=== PATIENT | female | born 1945 | race Caucasian/White ===

== ENCOUNTER 2020-09-26 06:15 | Inpatient (IN) ==
[~2020-09-26 06:15] MED LIST: Bacitracin 50,000 UNIT, Polymyxin B Sulfate 500,000 UNIT, Sodium Chloride IRRigation 1,... IR ONE
[2020-09-26] MEDS ORDERED: Clindamycin 900 MG/50 ML 900 MG/50 ML IV.SOLN IVPB ONE (06:34)
[2020-09-26] MEDS ORDERED: *HR* Rocuronium Bromide 50 MG/5 ML VIAL ONE (06:41)
[2020-09-26] MEDS ORDERED: Dexamethasone 4 MG/ML VIAL ONE (06:41)
[2020-09-26] MEDS ORDERED: *HR* Succinylcholine 200 MG/10 ML VIAL IVP ONE (06:41)
[2020-09-26] MEDS ORDERED: Lidocaine -MPF 2% 2 ML VIAL ONE (06:41)
[2020-09-26] MEDS ORDERED: Ondansetron 4 MG/2 ML VIAL ONE (06:41)
[2020-09-26] MEDS ORDERED: *HR* Propofol 200 MG/20 ML VIAL IVP ONE (06:42)
[2020-09-26] MEDS ORDERED: *HR* FentaNYL (PF) 100 MCG/2 ML VIAL ONE ×2 (06:42→09:31)
[2020-09-26] MEDS ORDERED: Ringers Solution, Lactated 1,000 ML IVC SCH ×2 (06:45→12:18)
[2020-09-26] MEDS ORDERED: CeFAZolin Syr 2,000MG/20 ML 2,000 MG/20 ML SYRINGE IVPB ONE (07:00)
[2020-09-26] MEDS ORDERED: Famotidine 20 MG/2 ML VIAL IVP ONE (07:14)
[2020-09-26] MEDS ORDERED: *HR* Labetalol 20 MG/4 ML SYRINGE IVP PRN (07:14)
[2020-09-26] MEDS ORDERED: Acetaminophen IV 1,000 MG/100 ML INFUS..BTL IVPB ONE (07:14)
[2020-09-26] MEDS ORDERED: *HR* HYDROmorphone 2 MG TABLET PO PRN (07:14)
[2020-09-26] MEDS ORDERED: *HR* OxyCODONE Immed Rel 5 MG TABLET PO PRN (07:14)
[2020-09-26] MEDS ORDERED: Promethazine 6.25 MG in Water for inj. (sterile) 20 ML IVPB PRN (07:14)
[2020-09-26] MEDS ORDERED: *HR* PHENYLEPHRINE 1,000 MCG/10 ML SYRINGE IVP ONE ×2 (08:36→10:17)
[2020-09-26] MEDS ORDERED: Sugammadex Sodium 200 MG/2 ML VIAL IV ONE (09:25)
[2020-09-26] MEDS ORDERED: EPHEDrine 50 MG/ML VIAL ONE (09:36)
[2020-09-26] MEDS: *HR* HYDROmorphone (PF) 1 MG/ML SYRINGE IVP PRN ×2 (11:20→11:30)
[2020-09-26] MEDS ORDERED: Lidocaine -MPF 4% 5 ML AMPUL ONE (12:07)
[2020-09-26] MEDS ORDERED: Naloxone 0.4 MG/ML INJ IVP PRN (12:18)
[2020-09-26] MEDS ORDERED: Ondansetron 4 MG/2 ML VIAL IVP PRN (12:18)
[2020-09-26] MEDS: *HR* OxyCODONE Immed Rel 5 MG TABLET PO PRN (13:18)
[2020-09-26] MEDS: CeFAZolin 2 GM/120 ML BAG IVPB SCH ×2 (15:53→23:30)
[2020-09-26] MEDS: *HR* HYDROcodone/Acet 5/325 mg TABLET PO PRN (18:19)
[2020-09-26] MEDS ORDERED: D5% in Water 1,000 ML IVC PRN (18:21)
[2020-09-26] MEDS ORDERED: *HR* Dextrose 50 % in Water (Vial) 50 ML VIAL IVP PRN (18:21)
[2020-09-26] MEDS ORDERED: Dextrose Gel 15 GM/37.5 ML TUBE PO PRN ×2 (18:21)
[2020-09-26] MEDS: Insulin LISPRO 300 UNITS/3 ML VIAL SQ SCH (20:49)
[2020-09-26] MEDS: amLODIPine 5 MG TABLET PO SCH (20:49)
[2020-09-27] MEDS: *HR* OxyCODONE Immed Rel 5 MG TABLET PO PRN ×3 (00:07→12:10)
[2020-09-27] MEDS: *HR* Pioglitazone 30 MG TABLET PO SCH (07:41)
[2020-09-27] MEDS: Ascorbic Acid 500 MG TABLET PO SCH (07:41)
[2020-09-27] MEDS: amLODIPine 5 MG TABLET PO SCH ×2 (07:41→20:16)
[2020-09-27] MEDS: Cholecalciferol (D-3) 1,000 UNIT (25MCG) TABLET PO SCH (07:41)
[2020-09-27] MEDS: Aspirin Enteric Coated 81 MG Tablet PO SCH (07:41)
[2020-09-27] MEDS: Insulin LISPRO 300 UNITS/3 ML VIAL SQ SCH ×4 (10:11→20:17)
[2020-09-27] MEDS: ICAPS AREDS2 PO SCH (11:15)
[2020-09-27] MEDS: *HR* HYDROcodone/Acet 5/325 mg TABLET PO PRN (20:16)
[2020-09-28] MEDS: *HR* HYDROcodone/Acet 5/325 mg TABLET PO PRN ×2 (04:55→17:33)
[2020-09-28] MEDS: Aspirin Enteric Coated 81 MG Tablet PO SCH (09:33)
[2020-09-28] MEDS: Insulin LISPRO 300 UNITS/3 ML VIAL SQ SCH ×4 (09:34→20:53)
[2020-09-28] MEDS: Cholecalciferol (D-3) 1,000 UNIT (25MCG) TABLET PO SCH (09:34)
[2020-09-28] MEDS: *HR* Pioglitazone 30 MG TABLET PO SCH (09:34)
[2020-09-28] MEDS: Ascorbic Acid 500 MG TABLET PO SCH (09:34)
[2020-09-28] MEDS: amLODIPine 5 MG TABLET PO SCH ×2 (09:34→20:53)
[2020-09-28] MEDS: ICAPS AREDS2 PO SCH (09:36)
[2020-09-28] MEDS: *HR* OxyCODONE Immed Rel 5 MG TABLET PO PRN (09:41)
[2020-09-28] MEDS: Acetaminophen 325 MG TABLET PO PRN (20:53)
[2020-09-29] MEDS: *HR* HYDROcodone/Acet 5/325 mg TABLET PO PRN ×2 (02:20→21:32)
[2020-09-29] MEDS: Acetaminophen 325 MG TABLET PO PRN (05:36)
[2020-09-29] MEDS: *HR* Pioglitazone 30 MG TABLET PO SCH (07:53)
[2020-09-29] MEDS: amLODIPine 5 MG TABLET PO SCH ×2 (07:53→21:32)
[2020-09-29] MEDS: Cholecalciferol (D-3) 1,000 UNIT (25MCG) TABLET PO SCH (07:53)
[2020-09-29] MEDS: Aspirin Enteric Coated 81 MG Tablet PO SCH (07:53)
[2020-09-29] MEDS: Ascorbic Acid 500 MG TABLET PO SCH (07:53)
[2020-09-29] MEDS: Insulin LISPRO 300 UNITS/3 ML VIAL SQ SCH ×3 (07:58→17:39)
[2020-09-29] MEDS: ICAPS AREDS2 PO SCH (08:00)
[2020-09-29] MEDS: *HR* OxyCODONE Immed Rel 5 MG TABLET PO PRN (09:08)
[2020-09-29] MEDS ORDERED: Insulin LISPRO 300 UNITS/3 ML VIAL SQ SCH (21:00)
[2020-09-30] MEDS: Acetaminophen 325 MG TABLET PO PRN (08:35)
[2020-09-30] MEDS: Insulin LISPRO 300 UNITS/3 ML VIAL SQ SCH (08:35)
[2020-09-30] MEDS: Ascorbic Acid 500 MG TABLET PO SCH (08:36)
[2020-09-30] MEDS: Cholecalciferol (D-3) 1,000 UNIT (25MCG) TABLET PO SCH (08:36)
[2020-09-30] MEDS: amLODIPine 5 MG TABLET PO SCH (08:36)
[2020-09-30] MEDS: Aspirin Enteric Coated 81 MG Tablet PO SCH (08:36)
[2020-09-30] MEDS: *HR* Pioglitazone 30 MG TABLET PO SCH (08:37)
[2020-09-30] MEDS ORDERED: Multivit/Ca/Min/Fe/FA 1 TAB TABLET PO SCH (09:00)
[2020-09-30 10:44] VITALS: BP 123/73
[2020-09-30] MEDS: *HR* HYDROcodone/Acet 5/325 mg TABLET PO PRN (11:22)
== END 2020-09-30 12:20 | disposition home or self-care (01) | DRG 455 ==
LOC: 3NENU 06:15 → SAMDAY 06:15 → 3NENU 12:05
PROVIDERS: ADMIT Orthopaedic Surgery Orthopaedic Surgery of the Spine; ATTEND Orthopaedic Surgery Orthopaedic Surgery of the Spine